=== PATIENT | male | born 1975 | race Hispanic/Latino ===

== ENCOUNTER 2018-07-03 09:12 | Outpatient (CLI) | payer MEDICARE | END 2018-07-03 09:13 | disposition home or self-care (01) | LOC: LAB 09:12 | DX: F20.9 Schizophrenia, unspecified (principal) ==

== ENCOUNTER 2018-08-09 13:41 | Outpatient (CLI) | payer MEDICARE | END 2018-08-09 13:42 | disposition home or self-care (01) | LOC: LAB 13:41 ==

== ENCOUNTER 2018-09-12 13:54 | Outpatient (CLI) | payer MEDICARE | END 2018-09-12 13:55 | disposition home or self-care (01) | LOC: LAB 13:54 ==

== ENCOUNTER 2018-10-11 13:46 | Outpatient (CLI) | payer MEDICARE | END 2018-10-11 13:47 | disposition home or self-care (01) | LOC: LAB 13:46 ==

== ENCOUNTER 2018-11-22 14:25 | Outpatient (CLI) | payer MEDICARE | END 2018-11-22 14:26 | disposition home or self-care (01) | LOC: LAB 14:25 ==